=== PATIENT | male | born 1990 | race Caucasian/White ===

== ENCOUNTER 2021-02-11 07:43 | Emergency (ER) | payer OTHER ==
[~2021-02-11] VITALS: Ht 165.1 cm; Wt 82.5 kg
[2021-02-11 07:45] VITALS: BP 120/83
[2021-02-11] MEDS ORDERED: DEXAMETHASONE 4 MG/ML, 1ML PO ONE (08:30)
[2021-02-11] MEDS ORDERED: DEXAMETHASONE 4 MG/ML, 5ML ONE (08:33)
[2021-02-11] MEDS ORDERED: DEXAMETHASONE 4 MG TABLET ONE ×2 (08:34→08:40)
== END 2021-02-11 09:50 | disposition home or self-care (01) ==
LOC: ED 08:11
DX: B34.9 Viral infection, unspecified (principal); Z20.822 Contact with and (suspected) exposure to COVID-19; J45.909 Unspecified asthma, uncomplicated
CPT/HCPCS: 71045; 99284; J1100; U0003; U0005

== ENCOUNTER 2021-05-31 19:51 | Emergency (ER) | payer OTHER ==
[~2021-05-31] VITALS: Ht 165.1 cm; Wt 79.1 kg
--- NOTE | 2021-05-31 20:14 | NUR ---
CALLED PT FOR TRAIGE MULTIPLE TIMES. NO ANSWER.
--- NOTE | 2021-05-31 21:18 | NUR ---
pt called to room from lobby
[2021-05-31 21:25] VITALS: BP 115/81
--- NOTE | 2021-05-31 21:25 | NUR ---
THIS IS A 31M THAT COMES IN FOR NECK PAIN THAT RADIATES DOWN R ARM, DENIES TRAUMA. PT ABLE TO MOVE ALL EXTREMETIES AND HEAD WITHOUT DIFFICULTY. PT RESTING ON GURNEY NADN RESP EVEN UNLABORED NO NEEDS AT THIS TIME
[2021-05-31] MEDS ORDERED: HYDROcodone/APAP 5/325 TABLET ONE (21:48)
--- NOTE | 2021-05-31 21:51 | NUR ---
PT MEDICATED PER NOV 05 RIGHTS VERIFIED
[2021-05-31] MEDS ORDERED: HYDROcodone/APAP 5/325 TABLET PO ONE (22:00)
== END 2021-06-01 01:24 | disposition home or self-care (01) ==
LOC: ED 22:02
DX: S16.1XXA Strain of muscle, fascia and tendon at neck level, initial encounter (principal); J45.909 Unspecified asthma, uncomplicated; Z88.0 Allergy status to penicillin; X58.XXXA Exposure to other specified factors, initial encounter; Y93.89 Activity, other specified; Y92.89 Other specified places as the place of occurrence of the external cause; Y99.8 Other external cause status
CPT/HCPCS: 72050; 72072; 99284; J7512